=== PATIENT | female | born 1990 | race Caucasian/White ===

== ENCOUNTER 2017-08-08 10:47 | Emergency (ER) | payer OTHER ==
[2017-08-08] MEDS ORDERED: Adacel Vial IM ONE (10:59)
[2017-08-08] MEDS ORDERED: TORAdol 30 mg Injection IM ONE (10:59)
[2017-08-08] MEDS ORDERED: Norflex 60 MG/2 ML IM ONE (10:59)
[2017-08-08] MEDS ORDERED: TORAdol 30 mg Injection ONE (11:04)
[2017-08-08] MEDS ORDERED: Norflex 60 MG/2 ML ONE (11:04)
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
[2017-08-08 12:36] VITALS: BP 132/70; PULSE 88; O2SAT 100
== END 2017-08-08 12:27 | disposition home or self-care (01) ==
LOC: ED 10:47
DX: S33.5XXA Sprain of ligaments of lumbar spine, initial encounter (principal); S80.02XA Contusion of left knee, initial encounter; S80.01XA Contusion of right knee, initial encounter; M54.5 Low back pain; V53.5XXA Driver of pick-up truck or van injured in collision with car, pick-up truck or van in traffic accident, initial encounter
CPT/HCPCS: 71046; 72100; 72170; 96372; 99284; J1885; J2360

== ENCOUNTER 2017-09-22 00:33 | Emergency (ER) | payer OTHER ==
[2017-09-22] MEDS ORDERED: TORAdol 30 mg Injection IV ONE (01:31)
[2017-09-22] MEDS ORDERED: Zofran 4 MG/2 ML VIAL IV ONE (01:31)
[2017-09-22] MEDS ORDERED: Sodium Chloride 0.9% 1000 ML 1,000 ML IV STA (01:31)
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
[2017-09-22 01:50] LABS: BASOPHIL % 0.2 % (0.0-0.4); Basophil (Absolute #) 0.03 (0-0.4); Eosinophil % 1.2 % (0.00-5.0); Eosinophil (Absolute #) 0.14 (0-0.5); Granulocytes % 73.9 % (36.0-66.0); Hematocrit 38.1 % (35-47); Hemoglobin 12.9 gm/dl (12.0-16.0); Lymphocyte (Absolute #) 2.31 (1.0-4.6); Mean Corpuscular Hemoglobin 31.2 pg (26-32); Mean Corpuscular Hgb Concent. 33.9 g/dl (32-36); Mean Platelet Volume 9.8 fl (6-9.5); Monocyte (Absolute #) 0.69 (0.0-1.3); Monocytes % 5.7 % (0.0-12.0); Platelet Count 280 K/mm3 (150-450); Red Blood Count 4.14 M/mm3 (4.1-5.4); Red Cell Distribution Width 12.7 % (11.5-14.0); White Blood Count 12.2 K/mm3 (4.0-10.5)
[2017-09-22] MEDS ORDERED: Zofran 4 MG/2 ML VIAL ONE (01:55)
[2017-09-22] MEDS ORDERED: TORAdol 30 mg Injection ONE (01:55)
[2017-09-22] MEDS ORDERED: Sodium Chloride 0.9% 1000 ML 1,000 ML ONE (01:55)
[2017-09-22 02:06] LABS: ALBUMIN 4.2 g/dL (3.5-5.0); ALKALINE PHOSPHATASE 61 U/L (38-126); BLOOD UREA NITROGEN 7 mg/dL (7-17); CHLORIDE 102 mmol/L (98-107); Calcium 9.2 mg/dL (8.4-10.2); Carbon Dioxide 26 mmol/L (22-30); Glucose 103 mg/dL (74-106); LIPASE 35 U/L (23-300); Potassium 3.3 mmol/L (3.5-5.1); SGOT/AST 12 U/L (14-36); SGPT/ALT 15 U/L (0-35); SODIUM 140 mmol/L (137-145); Total Protein 7.3 g/dL (6.3-8.2)
[2017-09-22 02:09] LABS: Appearance CLOUDY (CLEAR); Bilirubin NEGATIVE (NEGATIVE); Blood 250 Ery/ul (0-5); Glucose NEGATIVE (NEGATIVE); Ketones NEGATIVE (NEGATIVE); Leukocyte Esterase 2+ (NEGATIVE); Nitrite POSITIVE (NEGATIVE); Protein,Urine Dip 100 (Negative); Urobilinogen NORMAL mg/dL (0-1)
[2017-09-22 02:10] LABS: Bacteria MODERATE /HPF (NEGATIVE); Epithelial Cells MODERATE /HPF (FEW); Mucus MODERATE /HPF (NEGATIVE); RBC 50-100 /HPF (0-2); WBC 50-100 /HPF (0-5)
[2017-09-22] MEDS ORDERED: ROCEPHIN 1 Gm-D5w 50 ml Bag** 1 G/50 ML IVPB IV STA (02:16)
[2017-09-22] MEDS ORDERED: ROCEPHIN 1 Gm-D5w 50 ml Bag** 1 G/50 ML IVPB IV ONE (02:21)
[2017-09-22] MEDS ORDERED: Flomax 0.4 MG PO ONE (03:31)
[2017-09-22] MEDS ORDERED: Flomax 0.4 MG ONE (03:34)
[2017-09-22 03:38] VITALS: BP 116/63; PULSE 70
[2017-09-22 03:40] VITALS: O2SAT 100
--- NOTE | 2017-09-22 08:49 | XRAY ---
Indication: Right upper quadrant and right flank pain. Nausea. Multiple contiguous axial images obtained through the abdomen and pelvis without contrast as ordered. Comparison: None Lung bases demonstrates minimal left base dependent atelectasis. No infiltrate or effusion. Heart is not enlarged. Noncontrasted stomach and bowel loops appear nonobstructed. Appendix not seen. No free fluid/air. Right kidney mildly hydronephrotic without perinephric fluid. No hydroureter. There are multiple bilateral pelvic phleboliths for which a distal ureteral calculus cannot be completely excluded. Contracted gallbladder without gallstones. Remaining liver, pancreas, spleen, adrenal glands, left kidney, left ureter, urinary bladder, and aorta appear unremarkable for noncontrast exam. Osseous structures intact. Impression: Mild right renal hydronephrosis. Query distal ureteral calculus versus recent passage of calculus. Comment: Preliminary interpretation was made by [facility]. No discrepancy. CTDI 12.29
== END 2017-09-22 03:49 | disposition home or self-care (01) ==
LOC: ED 00:33
DX: N21.1 Calculus in urethra (principal); N39.0 Urinary tract infection, site not specified; R10.10 Upper abdominal pain, unspecified; R10.9 Unspecified abdominal pain
CPT/HCPCS: 36415; 74176; 80053; 81000; 83690; 84703; 85025; 87077; 87086; 87186; 96360; 96365; 96372; 96374; 99284; J0696; J1885; J2405; A9270-GY

== ENCOUNTER 2018-05-16 04:53 | Emergency (ER) | payer OTHER ==
[2018-05-16] MEDS ORDERED: Sodium Chloride 0.9% 1000 ML 1,000 ML IV STA ×2 (05:13→07:36)
[2018-05-16] MEDS ORDERED: TORAdol 30 mg Injection IV ONE (05:13)
[2018-05-16] MEDS ORDERED: Sodium Chloride 0.9% 1000 ML 1,000 ML ONE ×2 (05:16→07:37)
[2018-05-16] MEDS ORDERED: TORAdol 30 mg Injection ONE (05:16)
[2018-05-16 05:29] LABS: BASOPHIL % 0.6 % (0.0-0.4); Basophil (Absolute #) 0.06 (0-0.4); Eosinophil % 1.6 % (0.00-5.0); Eosinophil (Absolute #) 0.15 (0-0.5); Granulocytes % 58.8 % (36.0-66.0); Hematocrit 38.1 % (35-47); Lymphocyte (Absolute #) 3.16 (1.0-4.6); Lymphocytes % 32.8 % (24.0-44.0); Mean Cell Volume 93.8 fl (78-100); Mean Corpuscular Hgb Concent. 34.1 g/dl (32-36); Mean Platelet Volume 9.3 fl (6-9.5); Monocytes % 6.2 % (0.0-12.0); Platelet Count 306 K/mm3 (150-450); Red Blood Count 4.06 M/mm3 (4.1-5.4); Red Cell Distribution Width 11.8 % (11.5-14.0); White Blood Count 9.6 K/mm3 (4.0-10.5)
--- NOTE | 2018-05-16 05:40 | ERPHSYRPT ---
- History of Present Illness Source: patient Exam Limitations: clinical condition Patient Subjective Stated Complaint: pt is alert and oriented. pt is ambulatory with a steady gait. pt comes in with c/o right sided lower abd pain and right sided flank pain. pt denies n/v/d. pt states she has had some pain with urination, pt states she also had some "reddish" urine earlier tonight. pt urine specimen is clear, pale yellow urine. pt abdomen tender with palpation on right side, pt flank area also tender with palpation. Triage Nursing Assessment: see above Timing/Duration: today Activites at Onset: none Quality: sharpness, stabbing Onset Location: right flank Pain Radiation: RLQ Severity of Pain-Max: moderate Severity of Pain-Current: moderate Prior abdominal problems: similar symptoms Sexual intercourse history: non-contributory Modifying Factors: Improves With: nothing Associated Symptoms: dysuria, urinary frequency Hx Tetanus, Diphtheria Vaccination/Date Given: Yes Hx Influenza Vaccination/Date Given: No Hx Pneumococcal Vaccination/Date Given: No <BRANDT FARRELL - Last Filed: 05/16/18 07:01> <LANE HO - Last Filed: 05/16/18 07:46> - History of Present Illness Time Seen by Provider: 05/16/18 05:10 Physician History: PATIENT WITH A HISTORY OF KIDNEY STONES COMPLAINS OF ACUTE ONSET OF RIGHT FLANK PAIN RADIATES TO LOWER ABDOMEN 1 HOUR PRIOR TO EMERGENCY ARRIVAL ASSOCIATED WITH DYSURIA, FREQUENCY OF URINATION. DENIES FEVER, CHILLS, NAUSEA, EMESIS OR DIARRHEA. (BRANDT FARRELL) Allergies/Adverse Reactions: No Known Drug Allergies Allergy (Verified 09/22/17 00:48) - Review of Systems Constitutional: No Fever, No Chills Eyes: No Symptoms Ears, Nose, & Throat: No Symptoms Respiratory: No Symptoms, No Cough, No Dyspnea Cardiac: No Symptoms, No Chest Pain, No Edema, No Syncope Abdominal/Gastrointestinal: Nausea, No Abdominal Pain, No Vomiting, No Diarrhea Genitourinary Symptoms: Dysuria, Frequency, Hematuria, Flank Pain Musculoskeletal: No Back Pain, No Neck Pain Skin: No Rash Neurological: No Dizziness, No Focal Weakness, No Sensory Changes Psychological: No Symptoms Endocrine: No Symptoms All Other Systems: Reviewed and Negative <BRANDT FARRELL - Last Filed: 05/16/18 07:01> - Past Medical History Pertinent Past Medical History: Yes GI Medical History: Other Other Medical History: kidney stone in August 2017 - Past Surgical History Past Surgical History: Yes Female Surgical History: Section, Tubal Ligation - Social History Smoking Status: Never smoker Exposure to second hand smoke: No Drug Use: none Patient Lives Alone: No - Female History Hx Now: No <BRANDT FARRELL - Last Filed: 05/16/18 07:01> - Physical Exam General Appearance: mild distress Eye Exam: PERRL/EOMI Ears, Nose, Throat Exam: normal ENT inspection Neck Exam: normal inspection Respiratory Exam: normal breath sounds, lungs clear, No respiratory distress Cardiovascular Exam: regular rate/rhythm, normal heart sounds, normal peripheral pulses Gastrointestinal/Abdomen Exam: soft, normal bowel sounds Back Exam: normal inspection, CVA tenderness (RIGHT CVA TENDERNESS) Extremity Exam: normal inspection, normal range of motion Neurologic Exam: alert, oriented x 3, cooperative Skin Exam: normal color SpO2 Interpretation: normal SpO2: 100 Oxygen Delivery: Room Air <BRANDT FARRELL - Last Filed: 05/16/18 07:01> - Nursing Vital Signs Nursing Vital Signs: Initial Vital Signs Temperature 98.6 F 05/16/18 05:00 Pulse Rate 79 05/16/18 05:00 Respiratory Rate 16 05/16/18 05:00 Blood Pressure 127/67 05/16/18 05:00 O2 Sat by Pulse Oximetry 100 05/16/18 05:00 Pain Scale Pain Intensity 5 - CT Exams Abdomen/Pelvis CT Interpretation: Discussed w/radiologist (Discussed with Dr Sebastian), Other ( findings concerning for right hemorrhagic ovarian cyst; no appendix seen; appendicitis is not excluded.) <LANE HO - Last Filed: 05/16/18 07:46> Ordered Tests: Active Orders 24 hr Category Date Time Status ABDOMEN AND PELVIS W/0 CONTRAS [CT] Stat Exams 05/16/18 05:14 Taken CBC W DIFF Stat Lab 05/16/18 05:26 Completed CMP Stat Lab 05/16/18 05:09 Received HCG QUALITATIVE,SERUM Stat Lab 05/16/18 05:09 Received UA W/RFX UR CULTURE Stat Lab 05/16/18 05:26 Completed Medication Summary Discontinued Medications Generic Name Dose Route Start Last Admin Trade Name Freq PRN Reason Stop Dose Admin Sodium Chloride 1,000 mls @ 999 mls/hr 05/16/18 05:13 05/16/18 07:03 Sodium Chloride 0.9% 1000 Ml IV 05/16/18 06:13 Infused .Q1H1M STA Infusion Sodium Chloride Confirm 05/16/18 05:16 Sodium Chloride 0.9% 1000 Ml Administered 05/16/18 05:17 Dose 1,000 mls @ ud .ROUTE .STK-MED ONE Ketorolac Tromethamine 30 mg 05/16/18 05:13 05/16/18 05:21 Toradol 30 Mg Injection IV 05/16/18 05:14 30 mg STAT ONE Administration Ketorolac Tromethamine Confirm 05/16/18 05:16 Toradol 30 Mg Injection Administered 05/16/18 05:17 Dose 30 mg .ROUTE .STK-MED ONE Lab/Rad Data: Laboratory Result Diagrams 05/16/18 05:26 Laboratory Results 05/16/18 05/16/18 Range/Units 05:26 05:26 WBC 9.6 (4.0-10.5) K/mm3 RBC 4.06 L (4.1-5.4) M/mm3 Hgb 13.0 (12.0-16.0) gm/dl Hct 38.1 (35-47) % MCV 93.8 (78-100) fl MCH 32.0 (26-32) pg MCHC 34.1 (32-36) g/dl RDW 11.8 (11.5-14.0) % Plt Count 306 (150-450) K/mm3 MPV 9.3 (6-9.5) fl Gran % 58.8 (36.0-66.0) % Eos # (Auto) 0.15 (0-0.5) Absolute Lymphs (auto) 3.16 (1.0-4.6) Absolute Monos (auto) 0.60 (0.0-1.3) Lymphocytes % 32.8 (24.0-44.0) % Monocytes % 6.2 (0.0-12.0) % Eosinophils % 1.6 (0.00-5.0) % Basophils % 0.6 (0.0-0.4) % Absolute Granulocytes 5.65 (1.4-6.9) Basophils # 0.06 (0-0.4) Urine Color STRAW (YELLOW) Urine Appearance CLEAR (CLEAR) Urine pH 7.0 (5-6) Ur Specific Arrey 1.010 (1.005-1.025) Urine Protein NEGATIVE (Negative) Urine Ketones NEGATIVE (NEGATIVE) Urine Blood NEGATIVE (0-5) Ruddy/ul Urine Nitrite NEGATIVE (NEGATIVE) Urine Bilirubin NEGATIVE (NEGATIVE) Urine Urobilinogen NEGATIVE (0-1) mg/dL Ur Leukocyte Esterase NEGATIVE (NEGATIVE) Urine WBC (Auto) 0-2 (0-5) /HPF Urine RBC (Auto) NONE (0-2) /HPF U Epithel Cells (Auto) RARE (FEW) /HPF Urine Bacteria (Auto) NONE SEEN (NEGATIVE) /HPF Urine Mucus (Auto) SLIGHT (NEGATIVE) /HPF Urine Culture Reflexed NO (NO) Urine Glucose NEGATIVE (NEGATIVE) mg/dL <BRANDT FARRELL - Last Filed: 05/16/18 07:01> - Progress Progress: unchanged Blood Culture(s) Obtained: No Antibiotics given: No Counseled pt/family regarding: lab results, rad results <LANE HO - Last Filed: 05/16/18 07:46> - Progress Progress Note: 05/16/18 07:01 ADMINISTERED IV NORMAL SALINE 1000ML/HR, TORDOL 30MG IV (BRANDT FARRELL) 05/16/18 07:22 Pt care discussed and care accepted from Dr Farrell at 07:00. 05/16/18 07:41 Pt is sexually active. LMP was Apr 04. Last ate at 9:45 yest. I spoke with Dr Sebastian about abd/pelvis CT. Serum shows posivtive. Spoke with Dr Mon at [facility] who accepts pt for possible ruptured ectopic . (LANE HO) <BRANDT FARRELL - Last Filed: 05/16/18 07:01> - Departure Time of Disposition: 07:45 Departure Disposition: Transfer (Transfer to [facility] ER per Dr Mon.) Critical Care Time: No <LANE HO - Last Filed: 05/16/18 07:46> - Departure Clinical Impression: Ruptured right tubal ectopic causing hemoperitoneum Condition: Stable Referrals: DOCTOR,NO FAMILY [Primary Care Provider] -
[2018-05-16 05:42] LABS: Appearance CLEAR (CLEAR); Bilirubin NEGATIVE (NEGATIVE); Blood NEGATIVE Ery/ul (0-5); Epithelial Cells RARE /HPF (FEW); Glucose NEGATIVE (NEGATIVE); Ketones NEGATIVE (NEGATIVE); Leukocyte Esterase NEGATIVE (NEGATIVE); Mucus SLIGHT /HPF (NEGATIVE); Nitrite NEGATIVE (NEGATIVE); Protein,Urine Dip NEGATIVE (Negative); Urobilinogen NEGATIVE mg/dL (0-1); WBC 0-2 /HPF (0-5)
[2018-05-16 05:43] LABS: Bacteria NONE SEEN /HPF (NEGATIVE)
[2018-05-16 07:07] VITALS: O2SAT 100
[2018-05-16 07:36] LABS: ALBUMIN 4.7 g/dL (3.5-5.0); ALKALINE PHOSPHATASE 58 U/L (38-126); ANION GAP 14.1 MEQ/L (5-15); BLOOD UREA NITROGEN 12 mg/dL (7-17); CHLORIDE 105 mmol/L (98-107); Calcium 9.6 mg/dL (8.4-10.2); Carbon Dioxide 26 mmol/L (22-30); Creatinine 1 0.62 mg/dL (0.52-1.04); Glucose 102 mg/dL (74-106); Potassium 3.5 mmol/L (3.5-5.1); SGOT/AST 16 U/L (14-36); SGPT/ALT 14 U/L (0-35); SODIUM 141 mmol/L (137-145); Total Protein 7.9 g/dL (6.3-8.2)
[2018-05-16 07:46] VITALS: BP 135/87; PULSE 94
[2018-05-16] MEDS ORDERED: Zofran 4 MG/2 ML VIAL IV ONE (07:50)
[2018-05-16] MEDS ORDERED: MORPHINE SULFATE 4 MG INJ IV ONE (07:50)
[2018-05-16] MEDS ORDERED: Zofran 4 MG/2 ML VIAL ONE (07:52)
[2018-05-16] MEDS ORDERED: MORPHINE SULFATE 4 MG INJ ONE (07:53)
--- NOTE | 2018-05-16 08:07 | XRAY ---
Indication: Right flank pain and hematuria. Multiple contiguous axial images obtained through the abdomen and pelvis without contrast using renal stone protocol. Comparison: September 22, 2017 Lung bases are clear. Heart is not enlarged. Pelvis again demonstrates multiple bilateral microcalcifications, probable phleboliths. However there is a 3-4 mm right pelvic calcification (image 95, series 3) that appears to have propagated more distally concerning for distal ureteral calculus just proximal to the UVJ. Slight worsening mild right hydronephrosis and hydroureter consistent with obstructive uropathy. No perinephric fluid. New ovoid heterogeneous density in the right adnexa measuring at least 2.0 x 4.3 cm concerning for blood. Also tiny right colic free fluid. Findings possibly related to hemorrhagic right ovary cyst. No walled off fluid collection or free air. Uterus is now prominent with thickened endometrial cavity that should be correlated with patient's menstrual cycle. Noncontrasted stomach and bowel loops appear nonobstructed. Normal anterior pericecal appendix. Remaining liver, gallbladder, pancreas, spleen, adrenal glands, kidneys, ureters, bladder, and aorta appear unremarkable for noncontrast exam. Osseous structures intact with stable benign L5 sclerotic lesion. No ventral or inguinal hernias. Impression: 1. Suspect 3-4 mm distal right ureter calculus as detailed with mild right hydronephrosis/hydroureter consistent with obstructive uropathy. 2. New right adnexa heterogeneous density concerning for blood and new tiny right colic free fluid. Rule out hemorrhagic ovary cyst. Pelvic sonogram may yield further information. Also prominent uterus with endometrial cavity thickening. Correlate with patient's menstrual cycle. Comment: Preliminary interpretation was made by [facility]. Right ureteral calculus and hydronephrosis/hydroureter not reported. Telephone report was given to Dr. Mclean at 0755 hours on May 16, 2018. CTDI 14.06
== END 2018-05-16 08:03 | disposition short-term general hospital (02) ==
LOC: ED 04:53
DX: O00.101 Right tubal pregnancy without intrauterine pregnancy (principal); Z87.442 Personal history of urinary calculi
CPT/HCPCS: 36000; 36415; 74176; 80053; 81001; 81025; 85025; 96360; 96361; 96374; 96375; 99285; J1885; J2270; J2405

== ENCOUNTER 2019-01-08 20:43 | Emergency (ER) | payer BC, OTHER ==
[2019-01-08] MEDS ORDERED: Sodium Chloride 0.9% 1000 ML 1,000 ML IV STA (21:14)
--- NOTE | 2019-01-08 21:19 | ERPHSYRPT ---
- History of Present Illness Time Seen by Provider: 01/08/19 21:05 Historian: patient Exam Limitations: no limitations Patient Subjective Stated Complaint: Abdominal pain Triage Nursing Assessment: Patient ambulated into ED and transferred self to bed. Patient A+O X 3. Patient's skin pink, warm and dry. Patient complains of left lower abdominal pain sharp and cramping 5/10 for a couple of days. Patient states she noticed small amount of bright red blood after intercourse X 2. Patient denies vomiting or diarrhea. Abdomen flat and soft with BS X 4. Timing/Duration: today Activities at Onset: activity Quality: aching, sharpness Abdominal Pain Onset Location: LLQ Pain Radiation: no radiation Severity of Pain-Max: severe Severity of Pain-Current: severe Modifying Factors: Improves With: nothing Associated Symptoms: nausea, other (blood after wiping when she goes to the bathroom and sexual intercourse causes some discomfort after sexual intercourse over the past two day), No back, No chest pain, No diaphoresis, No diarrhea, No fever/chills, No fatigue, No headache, No heartburn, No loss of appetite, No neck pain, No rash, No shortness of breath, No syncope, No vomiting, No weakness Previous symptoms: no prior history Allergies/Adverse Reactions: No Known Drug Allergies Allergy (Verified 01/08/19 20:53) Hx Tetanus, Diphtheria Vaccination/Date Given: Yes Hx Influenza Vaccination/Date Given: No Hx Pneumococcal Vaccination/Date Given: No Immunizations Up to Date: Yes - Review of Systems Constitutional: No Fever, No Chills Eyes: No Symptoms, No Eye Pain, No Eye Redness Ears, Nose, & Throat: No Symptoms, No Mouth Pain, No Throat Pain Respiratory: No Cough, No Dyspnea Cardiac: No Chest Pain, No Edema, No Syncope Abdominal/Gastrointestinal: Abdominal Pain, Nausea, No Vomiting, No Diarrhea, No Constipation, No Hematemesis, No Hematochezia, No Melena, No Appetite Changes Genitourinary Symptoms: No Dysuria, No Hematuria, No Flank Pain, No Vaginal Bleeding, No Vaginal Discharge Musculoskeletal: No Back Pain, No Neck Pain Skin: No Rash Neurological: No Dizziness, No Focal Weakness, No Sensory Changes, No Tremors Psychological: No Symptoms Endocrine: No Symptoms Hematologic/Lymphatic: No Easy Bleeding, No Easy Bruising All Other Systems: Reviewed and Negative - Past Medical History Pertinent Past Medical History: Yes Neurological History: No Pertinent History ENT History: No Pertinent History Cardiac History: No Pertinent History Respiratory History: No Pertinent History Endocrine Medical History: No Pertinent History Musculoskeletal History: No Pertinent History GI Medical History: Other History: No Pertinent History Psycho-Social History: No Pertinent History Female Reproductive Disorders: No Pertinent History Other Medical History: kidney stone in August 2017, Eptopic May 2018 - Past Surgical History Past Surgical History: Yes Neuro Surgical History: No Pertinent History Cardiac: No Pertinent History Respiratory: No Pertinent History Gastrointestinal: No Pertinent History Genitourinary: No Pertinent History Musculoskeletal: No Pertinent History Female Surgical History: Section, Tubal Ligation - Social History Smoking Status: Never smoker Exposure to second hand smoke: Yes Drug Use: none Patient Lives Alone: No - Female History Hx Last Menstrual Period: December 28 Hx Now: (unknown) - Nursing Vital Signs Nursing Vital Signs: Initial Vital Signs Temperature 98.3 F 01/08/19 20:56 Pulse Rate 75 01/08/19 20:56 Respiratory Rate 18 01/08/19 20:56 Blood Pressure 112/79 01/08/19 20:56 O2 Sat by Pulse Oximetry 99 01/08/19 20:56 Pain Scale Pain Intensity 5 - Physical Exam General Appearance: no apparent distress, alert Eye Exam: PERRL/EOMI, eyes nml inspection, No scleral icterus Ears, Nose, Throat Exam: normal ENT inspection, pharynx normal, moist mucous membranes Neck Exam: normal inspection, non-tender, supple, full range of motion Respiratory Exam: normal breath sounds, lungs clear, No respiratory distress Cardiovascular Exam: regular rate/rhythm, normal heart sounds, normal peripheral pulses, capillary refill <2 sec Gastrointestinal/Abdomen Exam: soft, tenderness (mild tenderness in the left lower quadrant), No distention, No mass, No pulsatile mass, No rebound Pelvic Exam: normal external exam, other (chaperoned by Siobhan Sorto RN), No adnexal tenderness, No adnexal mass, No mass, No cervical motion tenderness, No vaginal bleeding, No uterine tenderness, No vaginal discharge Rectal Exam: normal rectal tone, No blood, No tenderness Back Exam: normal inspection, normal range of motion, No CVA tenderness, No vertebral tenderness Extremity Exam: normal inspection, normal range of motion, pelvis stable Neurologic Exam: alert, oriented x 3, cooperative, normal mood/affect, nml cerebellar function, sensation nml, No motor deficits Skin Exam: normal color, warm, dry SpO2 Interpretation: normal SpO2: 99 O2 Delivery: Room Air - Radiology Ultrasound Exam Pelvis Ultrasound: No Torsion/Nml Flow, Other (2cm left ovarian cyst) Ordered Tests: Active Orders 24 hr Category Date Time Status IV Insertion STAT Care 01/08/19 21:14 Active Pelvic Exam Assist STAT Care 01/08/19 21:14 Active PELVIC [US] Stat Exams 01/08/19 21:15 Taken AMYLASE Stat Lab 01/08/19 22:23 Completed CBC W DIFF Stat Lab 01/08/19 22:23 Completed CMP Stat Lab 01/08/19 22:23 Completed HCG,QUALITATIVE URINE Stat Lab 01/08/19 21:57 Completed LIPASE Stat Lab 01/08/19 22:23 Completed Lactic Acid Stat Lab 01/08/19 22:04 Completed UA W/RFX UR CULTURE Stat Lab 01/08/19 21:57 Completed Wet Prep Stat Lab 01/08/19 22:50 Completed Medication Summary Discontinued Medications Generic Name Dose Route Start Last Admin Trade Name Freq PRN Reason Stop Dose Admin Sodium Chloride 1,000 mls @ 999 mls/hr 01/08/19 21:14 01/08/19 23:07 Sodium Chloride 0.9% 1000 Ml IV 01/08/19 22:14 Infused .Q1H1M STA Infusion Sodium Chloride Confirm 01/08/19 22:06 Sodium Chloride 0.9% 1000 Ml Administered 01/08/19 22:07 Dose 1,000 mls @ ud .ROUTE .STK-MED ONE Ketorolac Tromethamine 30 mg 01/08/19 22:47 01/08/19 22:55 Toradol 30 Mg Injection IV 01/08/19 22:48 30 mg STAT ONE Administration Ketorolac Tromethamine Confirm 01/08/19 22:53 Toradol 30 Mg Injection Administered 01/08/19 22:54 Dose 30 mg .ROUTE .STK-MED ONE Lab/Rad Data: Laboratory Result Diagrams 01/08/19 22:23 01/08/19 22:23 Laboratory Results 01/08/19 01/08/19 01/08/19 Range/Units 22:50 22:23 22:23 WBC 7.1 (4.0-10.5) K/mm3 RBC 3.83 L (4.1-5.4) M/mm3 Hgb 12.3 (12.0-16.0) gm/dl Hct 36.8 (35-47) % MCV 96.1 (78-100) fl MCH 32.1 H (26-32) pg MCHC 33.4 (32-36) g/dl RDW 11.9 (11.5-14.0) % Plt Count 246 (150-450) K/mm3 MPV 9.5 (6-9.5) fl Gran % 64.8 (36.0-66.0) % Eos # (Auto) 0.04 (0-0.5) Absolute Lymphs (auto) 1.93 (1.0-4.6) Absolute Monos (auto) 0.49 (0.0-1.3) Lymphocytes % 27.0 (24.0-44.0) % Monocytes % 6.9 (0.0-12.0) % Eosinophils % 0.6 (0.00-5.0) % Basophils % 0.7 (0.0-0.4) % Absolute Granulocytes 4.63 (1.4-6.9) Basophils # 0.05 (0-0.4) Sodium 141 (137-145) mmol/L Potassium 3.4 L (3.5-5.1) mmol/L Chloride 106 (98-107) mmol/L Carbon Dioxide 28 (22-30) mmol/L Anion Gap 9.6 (5-15) MEQ/L BUN 8 (7-17) mg/dL Creatinine 0.56 (0.52-1.04) mg/dL Estimated GFR > 60.0 ML/MIN Glucose 84 (74-106) mg/dL Lactic Acid (0.4-2.0) Calcium 9.0 (8.4-10.2) mg/dL Total Bilirubin 0.50 (0.2-1.3) mg/dL AST 15 (14-36) U/L ALT 11 (0-35) U/L Alkaline Phosphatase 38 (38-126) U/L Serum Total Protein 6.6 (6.3-8.2) g/dL Albumin 3.9 (3.5-5.0) g/dL Amylase 30 (30-110) U/L Lipase 22 L (23-300) U/L Urine Color (YELLOW) Urine Appearance (CLEAR) Urine pH (5-6) Ur Specific Marion (1.005-1.025) Urine Protein (Negative) Urine Ketones (NEGATIVE) Urine Blood (0-5) Ruddy/ul Urine Nitrite (NEGATIVE) Urine Bilirubin (NEGATIVE) Urine Urobilinogen (0-1) mg/dL Ur Leukocyte Esterase (NEGATIVE) Urine WBC (Auto) (0-5) /HPF Urine RBC (Auto) (0-2) /HPF U Epithel Cells (Auto) (FEW) /HPF Urine Bacteria (Auto) (NEGATIVE) /HPF Calcium Oxalate Crystal (NEGATIVE) /HPF Urine Mucus (Auto) (NEGATIVE) /HPF Urine Culture Reflexed (NO) Urine Glucose (NEGATIVE) mg/dL Urine HCG, Qual (Negative) WBC (Wet Prep) Few RBC (Wet Prep) Moderate Epi Cells (Wet Prep) Rare Bacteria (Wet Prep) Few Clue Cells (Wet Prep) None Seen Trichomonas (Wet Prep) None Seen Budding Yeast (Wet Prp) None Seen 01/08/19 01/08/19 01/08/19 Range/Units 22:04 21:57 21:57 WBC (4.0-10.5) K/mm3 RBC (4.1-5.4) M/mm3 Hgb (12.0-16.0) gm/dl Hct (35-47) % MCV (78-100) fl MCH (26-32) pg MCHC (32-36) g/dl RDW (11.5-14.0) % Plt Count (150-450) K/mm3 MPV (6-9.5) fl Gran % (36.0-66.0) % Eos # (Auto) (0-0.5) Absolute Lymphs (auto) (1.0-4.6) Absolute Monos (auto) (0.0-1.3) Lymphocytes % (24.0-44.0) % Monocytes % (0.0-12.0) % Eosinophils % (0.00-5.0) % Basophils % (0.0-0.4) % Absolute Granulocytes (1.4-6.9) Basophils # (0-0.4) Sodium (137-145) mmol/L Potassium (3.5-5.1) mmol/L Chloride (98-107) mmol/L Carbon Dioxide (22-30) mmol/L Anion Gap (5-15) MEQ/L BUN (7-17) mg/dL Creatinine (0.52-1.04) mg/dL Estimated GFR ML/MIN Glucose (74-106) mg/dL Lactic Acid 0.6 (0.4-2.0) Calcium (8.4-10.2) mg/dL Total Bilirubin (0.2-1.3) mg/dL AST (14-36) U/L ALT (0-35) U/L Alkaline Phosphatase (38-126) U/L Serum Total Protein (6.3-8.2) g/dL Albumin (3.5-5.0) g/dL Amylase (30-110) U/L Lipase (23-300) U/L Urine Color DARK YELLOW (YELLOW) Urine Appearance CLOUDY (CLEAR) Urine pH 6.0 (5-6) Ur Specific Marion 1.024 (1.005-1.025) Urine Protein NEGATIVE (Negative) Urine Ketones NEGATIVE (NEGATIVE) Urine Blood NEGATIVE (0-5) Ruddy/ul Urine Nitrite NEGATIVE (NEGATIVE) Urine Bilirubin NEGATIVE (NEGATIVE) Urine Urobilinogen 2 (0-1) mg/dL Ur Leukocyte Esterase SMALL (NEGATIVE) Urine WBC (Auto) 6-10 (0-5) /HPF Urine RBC (Auto) 3-5 (0-2) /HPF U Epithel Cells (Auto) RARE (FEW) /HPF Urine Bacteria (Auto) RARE (NEGATIVE) /HPF Calcium Oxalate Crystal 26-50 (NEGATIVE) /HPF Urine Mucus (Auto) MANY (NEGATIVE) /HPF Urine Culture Reflexed NO (NO) Urine Glucose NEGATIVE (NEGATIVE) mg/dL Urine HCG, Qual NEGATIVE (Negative) WBC (Wet Prep) RBC (Wet Prep) Epi Cells (Wet Prep) Bacteria (Wet Prep) Clue Cells (Wet Prep) Trichomonas (Wet Prep) Budding Yeast (Wet Prp) - Progress Progress: improved Progress Note: 01/08/19 23:50 Patient is feeling better. Reviewed with patient the preliminary report of a 2cm left ovarian cyst that is most likely causing her symptoms with good arterial flow to both arteries. Counseled pt/family regarding: lab results, diagnosis, need for follow-up, rad results - Departure Departure Disposition: Home Clinical Impression: LLQ abdominal pain, Left ovarian cyst, Hypokalemia Condition: Good Critical Care Time: No Referrals: DOCTOR,NO FAMILY [Primary Care Provider] - CLEMENT RUSS MD [ACTIVE STAFF] - Follow Up with PCP/3 days Instructions: Acute Abdomen (Belly Pain), Adult (DC), Ovarian Cyst (DC), Hypokalemia (DC) Additional Instructions: Return immediately back to the emergency room if abdominal pain is any worse at any time. We will notify if any culture results come back positive and treated accordingly. The preliminary interpretation of your ultrasound showed a 2 cm cyst on the left ovary which most likely explains your pain, but return immediately back to the emergency department if pain is worsening. Prescriptions: Etodolac 400 mg [Lodine 400 mg] 400 mg PO BID PRN PRN #20 tablet PRN Reason: Pain
[2019-01-08] MEDS ORDERED: Sodium Chloride 0.9% 1000 ML 1,000 ML ONE (22:06)
[2019-01-08 22:09] LABS: Appearance CLOUDY (CLEAR); Bacteria RARE /HPF (NEGATIVE); Bilirubin NEGATIVE (NEGATIVE); Blood NEGATIVE Ery/ul (0-5); Calcium Oxalate Crystals 26-50 /HPF (NEGATIVE); Epithelial Cells RARE /HPF (FEW); Glucose NEGATIVE (NEGATIVE); Ketones NEGATIVE (NEGATIVE); Leukocyte Esterase SMALL (NEGATIVE); Mucus MANY /HPF (NEGATIVE); Nitrite NEGATIVE (NEGATIVE); Protein,Urine Dip NEGATIVE (Negative); Specific Gravity 1.024 (1.005-1.025); Urobilinogen 2 mg/dL (0-1)
[2019-01-08 22:26] LABS: BASOPHIL % 0.7 % (0.0-0.4); Basophil (Absolute #) 0.05 (0-0.4); Eosinophil % 0.6 % (0.00-5.0); Eosinophil (Absolute #) 0.04 (0-0.5); Granulocyte Absolute (ANC) 4.63 (1.4-6.9); Granulocytes % 64.8 % (36.0-66.0); Hematocrit 36.8 % (35-47); Hemoglobin 12.3 gm/dl (12.0-16.0); Lymphocyte (Absolute #) 1.93 (1.0-4.6); Mean Cell Volume 96.1 fl (78-100); Mean Corpuscular Hemoglobin 32.1 pg (26-32); Mean Corpuscular Hgb Concent. 33.4 g/dl (32-36); Mean Platelet Volume 9.5 fl (6-9.5); Monocyte (Absolute #) 0.49 (0.0-1.3); Monocytes % 6.9 % (0.0-12.0); Platelet Count 246 K/mm3 (150-450); Red Blood Count 3.83 M/mm3 (4.1-5.4); Red Cell Distribution Width 11.9 % (11.5-14.0); White Blood Count 7.1 K/mm3 (4.0-10.5)
[2019-01-08 22:37] LABS: ALBUMIN 3.9 g/dL (3.5-5.0); ALKALINE PHOSPHATASE 38 U/L (38-126); AMYLASE 30 U/L (30-110); ANION GAP 9.6 MEQ/L (5-15); BLOOD UREA NITROGEN 8 mg/dL (7-17); CHLORIDE 106 mmol/L (98-107); Carbon Dioxide 28 mmol/L (22-30); Creatinine 1 0.56 mg/dL (0.52-1.04); Glucose 84 mg/dL (74-106); LIPASE 22 U/L (23-300); Potassium 3.4 mmol/L (3.5-5.1); SGOT/AST 15 U/L (14-36); SGPT/ALT 11 U/L (0-35); SODIUM 141 mmol/L (137-145); Total Protein 6.6 g/dL (6.3-8.2)
[2019-01-08] MEDS ORDERED: TORAdol 30 mg Injection IV ONE (22:47)
[2019-01-08] MEDS ORDERED: TORAdol 30 mg Injection ONE (22:53)
[2019-01-08 23:04] LABS: Clue Cells None Seen
[2019-01-08 23:05] LABS: Bacteria Few; Red Blood Cells Moderate; Trichomonas None Seen; White Blood Cells Few; Yeast None Seen
[2019-01-08 23:53] VITALS: O2SAT 99
[2019-01-08 23:56] VITALS: BP 113/70; PULSE 64
[2019-01-08] MEDS ORDERED: Klor Con 10 MEQ PO ONE ×2 (23:56→23:58)
[2019-01-09 00:32] LABS: CHLAMYDIA URINE NEGATIVE (NEGATIVE); GC URINE NEGATIVE (NEGATIVE)
--- NOTE | 2019-01-09 07:29 | XRAY ---
Indication: Left lower quadrant pain. Possible torsion. Two-dimensional transabdominal pelvic sonogram performed. Comparison: None Urinary bladder not adequately distended producing poor acoustic window. Uterus anteverted measuring 8.7 x 4.7 x 6.7 cm. No focal solid/cystic mass. Endometrial stripe measures 6.1 mm. No endometrial cavity mass or fluid collection. Right ovary measures 2.8 x 1.6 x 2.1 cm and the left measures 3.8 x 2.2 x 2.8 cm with normal color Doppler flow bilaterally. Left ovary demonstrates a 2 cm anechoic cyst. No suspicious solid adnexal mass or free fluid. Impression: 2 cm left ovary cyst. Remaining transabdominal pelvic sonogram is negative. Comment: Preliminary report was given.
== END 2019-01-09 00:15 | disposition home or self-care (01) ==
LOC: ED 20:43
DX: R10.32 Left lower quadrant pain (principal); N83.202 Unspecified ovarian cyst, left side; E87.6 Hypokalemia
CPT/HCPCS: 36000; 36415; 76856; 80053; 81001; 82150; 83605; 83690; 84703; 85025; 87210; 87491; 87591; 96360; 96374; 99284; J1885; A9270-GY

== ENCOUNTER 2019-01-19 03:42 | Emergency (ER) | payer BC ==
[2019-01-19 04:39] VITALS: O2SAT 99
[2019-01-19] MEDS ORDERED: Hydromorphone 1 mg/ml Ampule IM ONE (05:01)
[2019-01-19] MEDS ORDERED: ZOFRAN ODT 4 MG PO ONE (05:02)
--- NOTE | 2019-01-19 05:02 | ERPHSYRPT ---
- History of Present Illness Time Seen by Provider: 01/19/19 05:01 Source: patient, family Exam Limitations: no limitations Patient Subjective Stated Complaint: sharp headache 8/10 onset a few weeks ago , pain behind left eye, radiating into lt neck. Triage Nursing Assessment: pt c/o lt head, temporal pain rad into lt neck, states pain in neck een during palpation, pain bedind lt eye as a headache Physician History: 29 y/o white female with no local doctor presents with 3 week h/o persistent headache. pt states she does have a h/o migraine headaches but rarely. additionally, she did hit her head 2 months ago. pt states pain shoots from left eye to left neck. pt states she is under a lot of pressure, more than usual. Timing/Duration: week(s) (3) Quality: sharpness, stabbing Head Pain Location: frontal, temporal (left behind eye) Severity of Pain-Max: moderate Severity of Pain-Current: moderate Recent Head Trauma: head trauma > 24 hrs ago (2 months ago) Modifying Factors: Improves With: exposure to light, noise Associated Symptoms: sensitive to light, No nausea/vomiting, No stiff neck Previous symptoms: same symptoms as today (remotely) Allergies/Adverse Reactions: No Known Drug Allergies Allergy (Verified 01/08/19 20:53) Home Medications: No Reportable Medications [No Reported Medications] 01/19/19 [History] Hx Tetanus, Diphtheria Vaccination/Date Given: Yes Hx Influenza Vaccination/Date Given: No Hx Pneumococcal Vaccination/Date Given: No - Review of Systems Constitutional: No Symptoms Eyes: Photophobia Ears, Nose, & Throat: No Symptoms Respiratory: No Symptoms Cardiac: No Symptoms Abdominal/Gastrointestinal: No Symptoms Genitourinary Symptoms: No Symptoms Musculoskeletal: No Symptoms Skin: No Symptoms Neurological: Headache Psychological: No Symptoms Endocrine: No Symptoms Hematologic/Lymphatic: No Symptoms Immunological/Allergic: No Symptoms All Other Systems: Reviewed and Negative - Past Medical History Pertinent Past Medical History: Yes Neurological History: No Pertinent History ENT History: No Pertinent History Cardiac History: No Pertinent History Respiratory History: No Pertinent History Endocrine Medical History: No Pertinent History Musculoskeletal History: No Pertinent History GI Medical History: Other History: No Pertinent History Psycho-Social History: No Pertinent History Female Reproductive Disorders: No Pertinent History Other Medical History: kidney stone in August 2017, Eptopic May 2018 - Past Surgical History Past Surgical History: Yes Neuro Surgical History: No Pertinent History Cardiac: No Pertinent History Respiratory: No Pertinent History Gastrointestinal: No Pertinent History Genitourinary: No Pertinent History Musculoskeletal: No Pertinent History Female Surgical History: Section - Social History Smoking Status: Never smoker Exposure to second hand smoke: Yes Drug Use: none Patient Lives Alone: No - Female History Hx Now: No - Nursing Vital Signs Nursing Vital Signs: Initial Vital Signs Temperature 98.2 F 01/19/19 03:49 Pulse Rate 71 01/19/19 03:49 Respiratory Rate 18 01/19/19 03:49 Blood Pressure 112/66 01/19/19 03:49 O2 Sat by Pulse Oximetry 97 01/19/19 03:49 Pain Scale Pain Intensity 6 - Physical Exam General Appearance: mild distress, alert, anxiety Eye Exam: PERRL/EOMI, eyes nml inspection Ears, Nose, Throat Exam: normal ENT inspection, moist mucous membranes Neck Exam: normal inspection, non-tender, supple, full range of motion Respiratory Exam: normal breath sounds, lungs clear, airway intact, No chest tenderness, No respiratory distress Gastrointestinal/Abdominal Exam: No tenderness Back Exam: normal inspection, normal range of motion, No CVA tenderness, No vertebral tenderness Extremity Exam: normal inspection, normal range of motion Mental Status Exam: alert, oriented x 3, 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 Exam: normal hearing, normal speech, PERRL, tongue midline Coordination/Gait Exam: normal finger to nose, normal gait, normal cerebellar function Motor/Sensory Exam: no motor deficit, no sensory deficit Skin Exam: normal color, warm Lymphatic Exam: adenopathy SpO2 Interpretation: normal SpO2: 99 O2 Delivery: Room Air - Course Nursing assessment & vital signs reviewed: Yes Ordered Tests: Active Orders 24 hr Category Date Time Status HEAD WITHOUT CONTRAST [CT] Stat Exams 01/19/19 04:02 Taken Medication Summary Discontinued Medications Generic Name Dose Route Start Last Admin Trade Name Freq PRN Reason Stop Dose Admin Hydromorphone HCl 1 mg 01/19/19 05:01 01/19/19 05:07 Hydromorphone 1 Mg/Ml Ampule IM 01/19/19 05:02 1 mg STAT ONE Administration Hydromorphone HCl Confirm 01/19/19 05:06 Hydromorphone 1 Mg/Ml Ampule Administered 01/19/19 05:07 Dose 1 mg .ROUTE .STK-MED ONE Ondansetron HCl 4 mg 01/19/19 05:02 01/19/19 05:07 Zofran Odt 4 Mg PO 01/19/19 05:03 4 mg STAT ONE Administration Ondansetron HCl Confirm 01/19/19 05:05 Zofran Odt 4 Mg Administered 01/19/19 05:06 Dose 4 mg .ROUTE .STK-MED ONE - Progress Progress: improved Air Movement: good Blood Culture(s) Obtained: No Antibiotics given: No Counseled pt/family regarding: diagnosis, need for follow-up, rad results - Departure Departure Disposition: Home Clinical Impression: Migraine headache Condition: Stable Critical Care Time: No Referrals: DOCTOR,NO FAMILY [Primary Care Provider] - Additional Instructions: you must follow up with a primary care provider for chronic pain issues. use tylenol and ibuprofen for pain control until evaluated as an outpatient with a provider.
[2019-01-19] MEDS ORDERED: ZOFRAN ODT 4 MG ONE (05:05)
[2019-01-19] MEDS ORDERED: Hydromorphone 1 mg/ml Ampule ONE (05:06)
[2019-01-19 05:15] VITALS: BP 119/75; PULSE 72
--- NOTE | 2019-01-19 08:47 | XRAY ---
Indication: Left-sided headache 3 weeks. Multiple contiguous axial images obtained through the head without contrast. Comparison: None. Normal appearing brain parenchyma, ventricles, and bony calvarium. Visualized paranasal sinuses and mastoid air cells are clear. Impression: Normal CT head without contrast exam. Comment: Preliminary interpretation was made by [facility]. No critical discrepancy. CT DI 70.87
== END 2019-01-19 05:41 | disposition home or self-care (01) ==
LOC: ED 03:42
DX: G43.909 Migraine, unspecified, not intractable, without status migrainosus (principal)
CPT/HCPCS: 70450; 96372; 99284; J1170; Q0162